=== PATIENT | male | born 2000 | race Caucasian/White ===

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

== ENCOUNTER 2019-04-10 14:43 | Emergency (ER) | payer MEDICAID, OTHER ==
[~2019-04-10] VITALS: Ht 185.4 cm; Wt 77.1 kg
--- OUTSIDE RECORDS SUMMARY | 2019-04-10 14:54 | XMS REPORT | Continuity of Care Document ---
Author Author [facility] Organization [facility] Address Unknown Phone Unavailable Care Team Providers Care Lighting Fixture Installer Name Role Phone [facility] OF Insurance Providers Payer Name Policy Number Subscriber Name Relationship Medicaid [place] [id number] Peter Salcedo 01 Self / Same As Patient Advance Directives Directive Response Recorded Date Advance Directives N 07/06/13 10:27pm Organ Donor Y 07/06/13 10:27pm Problems No Known Problems or Medical conditions. Family History History Response Recorded Date/Time Hx Family Cancer Y PATERNAL AUNT & GRANDMOTHER 02/27/09 11:40pm Hx Family Cardiac Disorders Y 02/27/09 11:40pm Hx Family Hypertension Y MATERNAL GRANDMOTHER 02/27/09 11:40pm Social History History Response Recorded Date/Time Alcohol Use Denies Use 07/06/13 10:27pm Recreational Drug Use N 07/06/13 10:27pm Allergies, Adverse Reactions, Alerts Allergen Type Severity Reaction Last Updated No Known Allergies Allergy Mild 02/27/09 NKDA Allergy Mild 04/28/09 Medications Medication Dose Units Route Sig Qty Days No Active Prescriptions or Reported Medications Azithromycin (Zithromax) 1 Tab PO DAILY 4 Response Recorded Date/Time Status not known Unknown Results No Known Relevant Diagnostic Tests, Laboratory Data and/or Discharge Summary. Encounters Encounter Location Date/Time Departed Emergency Room [facility] 07/06/13 10:20pm Discharged Inpatient [facility] 12:00am
--- OUTSIDE RECORDS SUMMARY | 2019-04-10 14:54 | XMS REPORT | Continuity of Care Document ---
Author Author [facility] Organization [facility] Address Unknown Phone Unavailable Care Team Providers Care Building Drafting Officer Name Role Phone MANUELA POE MD PP Insurance Providers Payer Name Policy Number Subscriber Name Relationship Medicaid [place] [id number] Peter Salcedo 01 Self / Same As Patient Advance Directives Directive Response Recorded Date Advance Directives N 03/30/13 3:08am Problems No Known Problems or Medical conditions. Family History History Response Recorded Date/Time Hx Family Cancer Y PATERNAL AUNT & GRANDMOTHER 02/27/09 11:40pm Social History History Response Recorded Date/Time Alcohol Use Denies Use 03/30/13 3:08am Recreational Drug Use N 03/30/13 3:08am Allergies, Adverse Reactions, Alerts Allergen Type Severity Reaction Last Updated No Known Allergies Allergy Mild 02/27/09 NKDA Allergy Mild 04/28/09 Medications Medication Dose Units Route Sig Qty Days Azithromycin (Zithromax) 1 Tab PO DAILY 4 Response Recorded Date/Time Status not known Unknown Results No Known Relevant Diagnostic Tests, Laboratory Data and/or Discharge Summary. Encounters Encounter Location Date/Time Departed Emergency Room [facility] 03/30/13 3:06am Discharged Inpatient [facility] 12:00am
[2019-04-10] MEDS ORDERED: KETOROLAC 60 MG/2 ML VIAL IM ONE (15:00)
[2019-04-10] MEDS ORDERED: CYCLOBENZAPRINE 10 MG (FLEXERIL) TAB PO SCH (15:00)
--- NOTE | 2019-04-10 15:05 | ED Back Pain ---
General Chief Complaint: Back Problems Stated Complaint: BACK INJ Nursing Triage Note: AMBULATED TO TRIAGE WITH COMPLAINTS OF MID TO LOW BACK PAIN AFTER CARRYING WOOD FOR THE NI. Nursing Sepsis Screen: No Definite Risk Source of Information: Patient Exam Limitations: No Limitations History of Present Illness Date Seen by Provider: Apr 10, 2019 Time Seen by Provider: 15:03 Initial Comments 18-year-old male who presents to the emergency room with complaints of lower back pain after lifting a big pieces of wood while working at the [employer] today. He denies loss of bowel or bladder or saddle paresthesia. He reports that he feels like he is having back spasms. Location: Lumbar Spine Timing/Duration: 1-3 Hours Pain/Injury Location: Back Associated Symptoms: muscle spasms, lower back pain Allergies and Home Medications Allergies Coded Allergies: NKANo Known Allergies (Unverified Allergy, Mild, 02/27/09) Home Medications Cyclobenzaprine HCl 10 Mg Tablet, 10 MG PO Q8H PRN for SPASMS Prescribed by: ATUL LINDA on 04/10/191650 Hydrocodone Bit/Acetaminophen 1 Tab Tab, 1 EACH PO Q4-6HR PRN for PAIN-MODERATE Prescribed by: ATUL LINDA on 04/10/191650 Prednisone 20 Mg Tab, 40 MG PO DAILY Prescribed by: ATUL LINDA on 04/10/191650 Patient Home Medication List Home Medication List Reviewed: Yes Review of Systems Constitutional: see HPI; No chills, No fever Musculoskeletal: see HPI, back pain, muscle stiffness All Other Systems Reviewed Negative Unless Noted: Yes Past Nfbvnne-Sizwsk-Sdrrii Hx Past Med/Social Hx: Reviewed Nursing Past Med/Soc Hx Patient Social History Alcohol Use: Occasionally Uses Recreational Drug Use: No Smoking Status: Current Everyday Smoker Recent Foreign Travel: No Contact w/Someone Who Travel: No Recent Infectious Disease Expo: No Recent Hopitalizations: No Seasonal Allergies Seasonal Allergies: No Past Medical History Surgeries: No Respiratory: No Cardiac: No Neurological: No Genitourinary: No Gastrointestinal: No Musculoskeletal: Yes (ANDREI MOUNTAIN SPOTTED FEVER A CHILD) Endocrine: No HEENT: No Cancer: No Psychosocial: No Integumentary: No Blood Disorders: No Family Medical History Reviewed Nursing Family Hx Physical Exam Vital Signs Vital Signs - First Documented 04/10/19 04/10/19 14:54 17:01 Temp 98.0 Pulse 118 Resp 16 B/P (MAP) 116/76 (89) Pulse Ox 96 O2 Delivery Room Air Capillary Refill : Less Than 3 Seconds Height, Weight, BMI Height: 6'1.00" Weight: 170lbs. oz. 77.866104ra; 21.09 BMI Method:Stated General Appearance: No Apparent Distress, WD/WN Neck: Full Range of Motion, Normal Inspection, Non Tender, Supple Cardiovascular: Regular Rate, Rhythm, No Edema, No Gallop, No JVD, No Murmur, Normal Peripheral Pulses Respiratory: Chest Non Tender, Lungs Clear, Normal Breath Sounds, No Accessory Muscle Use, No Respiratory Distress, Accessory Muscle Use Back: Normal Inspection, No CVA Tenderness, Muscle Spasm (lumbar), Vertebral Tenderness Extremity: No Pedal Edema Neurologic/Psychiatric: Alert, Oriented x3, Normal Mood/Affect Skin: Normal Color, Warm/Dry Progress/Results/Core Measures Results/Orders My Orders Orders - ATUL LINDA Ketorolac Injection (Toradol Injection) (04/10/19 15:00) Cyclobenzaprine Tablet (Flexeril Tablet) (04/10/19 15:00) Hydrocodone/Apap 7.5/325 Tab (Lortab 7. (04/10/19 16:15) Ct Lumbar Spine Wo (04/10/19 16:08) Medications Given in ED Vital Signs/I&O 04/10/19 04/10/19 14:54 17:01 Temp 98.0 98.0 Pulse 118 118 Resp 16 16 B/P (MAP) 116/76 (89) Pulse Ox 96 96 O2 Delivery Room Air Diagnostic Imaging Diagonstic Imaging: CT Comments NAME: UVALDO SALCEDO REC#: [id number] PT STATUS: REG ER : 2000 PHYSICIAN: ATUL LINDA ADMIT DATE: 04/10/19/ER Draft Date of Exam:04/10/19 CT LUMBAR SPINE WO PROCEDURE: CT lumbar spine without contrast. TECHNIQUE: Multiple contiguous axial images were obtained through the lumbar spine without the use of intravenous contrast. Sagittal and coronal reformations were then performed. Auto Exposure Controls were utilized during the CT exam to meet ALARA standards for radiation dose reduction. INDICATION: Low back pain after lifting a stack of heavy lumber. COMPARISON: None available. FINDINGS: No fracture or acute osseous abnormality. Vertebral body heights are maintained. Spinal alignment and intervertebral disc spaces are preserved. Incidental note is made of a somewhat triangular-shaped well corticated ossific density with sclerotic margins along the superoanterior endplate of the L5 vertebral body, likely representing a limbus vertebra, normal variant. A Schmorl's node is demonstrated along the inferior endplate of the L4 vertebral body. The SI joints are normal. The visualized lungs are clear. No aneurysmal dilatation of the visualized aorta. Abdominal organs and bowel are unremarkable. IMPRESSION: No acute fracture or subluxation involving the lumbar spine. Dictated on workstation # [id number] Dict: 04/10/19 1635 Trans: 04/10/19 1647 [facility] [id number] Interpreted by: YAZMIN TOWNSEND DO Electronically signed by: Reviewed: Reviewed by Me Departure Impression Primary Impression: Back strain Disposition: 01 HOME, SELF-CARE Condition: Stable/Unchanged Departure-Patient Inst. Decision time for Depature: 16:49 Referrals: NO,LOCAL PHYSICIAN (PCP/Family) Primary Care Physician Patient Instructions: Lumbar Muscle Strain (DC) Add. Discharge Instructions: Take medications as directed. Follow-up with her primary care provider within 1 week for recheck. You may use additional Tylenol and ibuprofen as directed by the bottle for pain relief. Do not exceed your daily limit of Tylenol of 4000 mg. You may alternate ice and heat to the sore areas. All discharge instructions reviewed with patient and/or family. Voiced understanding. Scripts Cyclobenzaprine HCl (Cyclobenzaprine HCl) 10 Mg Tablet 10 MG PO Q8H PRN for SPASMS, #15 TAB 0 Refills Prov: ATUL LINDA 04/10/19 Prednisone (Prednisone) 20 Mg Tab 40 MG PO DAILY for 5 Days, #10 TAB 0 Refills Prov: ATUL LINDA 04/10/19 Hydrocodone Bit/Acetaminophen (Hydrocodone/Acetaminophen 5/325mg Tablet) 1 Tab Tab 1 EACH PO Q4-6HR PRN for PAIN-MODERATE MDD 10 for 3 Days, #10 TAB Prov: ATUL LINDA 04/10/19 Work/School Note: Work Release Form Date Seen in the Emergency Department: Apr 10, 2019 Return to Work: Apr 12, 2019 Restrictions: No Restrictions ATUL LINDA Apr 10, 2019 15:05
[2019-04-10] MEDS ORDERED: HYDROcodone/APAP 7.5 MG/325 MG (LORTAB, LORCET PLUS) TABLET PO ONE (16:15)
--- NOTE | 2019-04-10 16:48 | Diagnostic Imaging Report ---
PROCEDURE: CT lumbar spine without contrast. TECHNIQUE: Multiple contiguous axial images were obtained through the lumbar spine without the use of intravenous contrast. Sagittal and coronal reformations were then performed. Auto Exposure Controls were utilized during the CT exam to meet ALARA standards for radiation dose reduction. INDICATION: Low back pain after lifting a stack of heavy lumber. COMPARISON: None available. FINDINGS: No fracture or acute osseous abnormality. Vertebral body heights are maintained. Spinal alignment and intervertebral disc spaces are preserved. Incidental note is made of a somewhat triangular-shaped well corticated ossific density with sclerotic margins along the superoanterior endplate of the L5 vertebral body, likely representing a limbus vertebra, normal variant. A Schmorl's node is demonstrated along the inferior endplate of the L4 vertebral body. The SI joints are normal. The visualized lungs are clear. No aneurysmal dilatation of the visualized aorta. Abdominal organs and bowel are unremarkable. IMPRESSION: No acute fracture or subluxation involving the lumbar spine. Dictated by: Dictated on workstation # [id number]
[2019-04-10] MEDS ORDERED: ACHD5005 PO (16:51)
[2019-04-10] MEDS ORDERED: CYCL10TA9 PO (16:51)
[2019-04-10] MEDS ORDERED: PRD20T PO (16:51)
[2019-04-10 17:01] VITALS: BP 116/76
== END 2019-04-10 17:01 | disposition home or self-care (01) ==
LOC: EDUNIT# 14:43 → ER 14:44
DX: S39.012A Strain of muscle, fascia and tendon of lower back, initial encounter (principal); F17.200 Nicotine dependence, unspecified, uncomplicated; Z79.52 Long term (current) use of systemic steroids; X50.0XXA Overexertion from strenuous movement or load, initial encounter; Y92.59 Other trade areas as the place of occurrence of the external cause; Y99.0 Civilian activity done for income or pay
CPT/HCPCS: 72131; 96372

== ENCOUNTER 2020-07-18 08:29 | Emergency (ER) | payer OTHER ==
[~2020-07-18] VITALS: Ht 185.4 cm; Wt 83.3 kg
[~2020-07-18 08:29] MED LIST changes: +ACHD5005 PO; +CYCL10TA9 PO; +PRD20T PO
[2020-07-18] MEDS ORDERED: LACTATED RINGERS 1,000 ML IV ONE (09:07)
[2020-07-18 09:20] LABS: BASOPHILS # (AUTO) 0.1 10^3/uL (0.0-0.1); BASOPHILS % (AUTO) 1 % (0-10); EOSINOPHILS # (AUTO) 0.1 10^3/uL (0.0-0.3); EOSINOPHILS % (AUTO) 2 % (0-10); HEMATOCRIT 40 % (40-54); HEMOGLOBIN 14.4 G/DL (13.3-17.7); LYMPHOCYTES # (AUTO) 2.7 X 10^3 (1.0-4.0); LYMPHOCYTES % (AUTO) 37 % (12-44); MEAN CORPUSCULAR HEMOGLOBIN 31 PG (25-34); MEAN CORPUSCULAR HGB CONC 36 G/DL (32-36); MEAN CORPUSCULAR VOLUME 87 FL (80-99); MEAN PLATELET VOLUME 8.8 FL (7.4-10.4); MONOCYTES # (AUTO) 0.8 X 10^3 (0.0-1.0); MONOCYTES % (AUTO) 11 % (0-12); NEUTROPHILS # (AUTO) 3.5 X 10^3 (1.8-7.8); NEUTROPHILS % (AUTO) 49 % (42-75); PLATELET COUNT 326 10^3/uL (130-400); WHITE BLOOD COUNT 7.2 10^3/uL (4.3-11.0)
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
[2020-07-18 09:33] LABS: ALANINE AMINOTRANSFERASE 33 U/L (0-55); ALBUMIN 4.3 GM/DL (3.2-4.5); ALKALINE PHOSPHATASE 55 U/L (40-136); BILIRUBIN,TOTAL 0.5 MG/DL (0.1-1.0); BUN/CREATININE RATIO 11; CALCIUM 9.2 MG/DL (8.5-10.1); CARBON DIOXIDE 23 MMOL/L (21-32); CHLORIDE 109 MMOL/L (98-107); CREATININE SERUM 0.92 MG/DL (0.60-1.30); GFR ESTIMATED > 60; GLUCOSE 87 MG/DL (70-105); MAGNESIUM 2.1 MG/DL (1.6-2.4); POTASSIUM 3.8 MMOL/L (3.6-5.0); SODIUM 139 MMOL/L (135-145); TOTAL PROTEIN 7.1 GM/DL (6.4-8.2)
--- NOTE | 2020-07-18 10:12 | NUR ---
TO CT PER CART
--- NOTE | 2020-07-18 10:23 | Diagnostic Imaging Report ---
PROCEDURE: CT head without contrast. TECHNIQUE: Multiple contiguous axial images were obtained through the brain without the use of intravenous contrast. Auto Exposure Controls were utilized during the CT exam to meet ALARA standards for radiation dose reduction. INDICATION: Seizure. Headaches. Comparison with 07/07/2013. FINDINGS: The ventricles and cortical gyral pattern are normal. There is no intracranial hemorrhage or mass effect. No extra-axial fluid collection. Basal cisterns are clear. CP angles are normal. The mastoid air cells are clear. Paranasal sinuses are clear. No calvarial lesion. IMPRESSION: Negative CT head without contrast. Dictated by: Dictated on workstation # [id number]
[2020-07-18 11:12] VITALS: BP 122/68
== END 2020-07-18 11:12 | disposition home or self-care (01) ==
LOC: EDUNIT# 08:29 → ER 08:30
DX: R56.9 Unspecified convulsions (principal)
CPT/HCPCS: 36415; 70450; 80053; 83735; 84443; 85025

== ENCOUNTER 2022-05-19 10:29 | Emergency (ER) | payer SELFPAY ==
[~2022-05-19] VITALS: Ht 185.5 cm; Wt 77.1 kg
[~2022-05-19 10:29] MED LIST changes: +CYCL10TA25 PO; -CYCL10TA9 PO
[2022-05-19 11:14] VITALS: BP 111/65
[2022-05-19] MEDS ORDERED: HYDROcodone/APAP 5 MG/325 MG (LORTAB) TAB PO ONE (11:45)
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
[2022-05-19 12:04] LABS: BASOPHILS # (AUTO) 0.1 10^3/uL (0.0-0.1); BASOPHILS % (AUTO) 1 % (0-10); EOSINOPHILS # (AUTO) 0.1 10^3/uL (0.0-0.3); EOSINOPHILS % (AUTO) 0 % (0-10); HEMATOCRIT 41 % (40-54); HEMOGLOBIN 13.7 g/dL (13.3-17.7); LYMPHOCYTES # (AUTO) 1.3 10^3/uL (1.0-4.0); LYMPHOCYTES % (AUTO) 9 % (12-44); MEAN CORPUSCULAR HEMOGLOBIN 32 pg (25-34); MEAN CORPUSCULAR HGB CONC 34 g/dL (32-36); MEAN CORPUSCULAR VOLUME 94 fL (80-99); MEAN PLATELET VOLUME 8.5 fL (9.0-12.2); MONOCYTES # (AUTO) 0.8 10^3/uL (0.0-1.0); MONOCYTES % (AUTO) 6 % (0-12); NEUTROPHILS # (AUTO) 11.6 10^3/uL (1.8-7.8); NEUTROPHILS % (AUTO) 84 % (42-75); PLATELET COUNT 324 10^3/uL (130-400)
[2022-05-19 12:17] LABS: ALBUMIN 4.7 GM/DL (3.2-4.5)
[2022-05-19 12:18] LABS: CHLORIDE 105 MMOL/L (98-107); POTASSIUM 4.1 MMOL/L (3.6-5.0); SODIUM 144 MMOL/L (135-145)
[2022-05-19 12:19] LABS: CALCIUM 9.7 MG/DL (8.5-10.1)
[2022-05-19 12:20] LABS: GLUCOSE 87 MG/DL (70-105); TOTAL PROTEIN 7.4 GM/DL (6.4-8.2)
[2022-05-19 12:21] LABS: CARBON DIOXIDE 25 MMOL/L (21-32)
[2022-05-19 12:22] LABS: BILIRUBIN,TOTAL 1.1 MG/DL (0.1-1.0)
[2022-05-19 12:23] LABS: ALKALINE PHOSPHATASE 59 U/L (40-136); CREATININE SERUM 0.82 MG/DL (0.60-1.30); GFR ESTIMATED 127
[2022-05-19 12:24] LABS: BUN/CREATININE RATIO 17
[2022-05-19 12:26] LABS: ALANINE AMINOTRANSFERASE 24 U/L (0-55)
--- NOTE | 2022-05-19 13:04 | Diagnostic Imaging Report ---
PROCEDURE: CT maxillofacial without contrast. TECHNIQUE: Multiple contiguous axial images were obtained through the facial bones without the use of intravenous contrast. Auto Exposure Controls were utilized during the CT exam to meet ALARA standards for radiation dose reduction. INDICATION: Left facial pain. FINDINGS: There is a mildly displaced, angulated, and overriding fracture within the left mandibular neck with associated surrounding edema and contusion. There is no bk dislocation of the mandibular condyle. The right temporomandibular joint is intact. There is a depressed, angulated fracture involving the lateral wall of the left maxillary sinus with associated left maxillary sinus air-fluid level, likely due to hemorrhage. This does extend superiorly toward the apex of the orbit; however, no definite orbital floor fracture is identified. The remainder of the paranasal sinuses is clear. No other definite fracture is identified. IMPRESSION: Angulated overriding fracture involving the left mandibular neck without condylar extension or dislocation. There is a depressed fracture involving the lateral wall of the left maxillary sinus with associated hemorrhage into the sinus. No definite orbital involvement is identified. Dictated by: Dictated on workstation # [id number]
[2022-05-19] MEDS ORDERED: ACHD5005 PO (13:37)
[2022-05-19] MEDS ORDERED: CEPH500T PO (13:37)
[2022-05-20] MEDS ORDERED: KETO10TA PO (03:28)
== END 2022-05-19 13:43 | disposition home or self-care (01) ==
LOC: EDUNIT# 10:29 → ER 10:31
DX: S02.92XA Unspecified fracture of facial bones, initial encounter for closed fracture (principal); X58.XXXA Exposure to other specified factors, initial encounter
CPT/HCPCS: 36415; 70486; 80053; 85025; 99282

== ENCOUNTER 2022-05-20 02:50 | Emergency (ER) | payer SELFPAY ==
[~2022-05-20 02:50] MED LIST changes: +CEPH500T PO
[2022-05-20 03:02] VITALS: BP 128/87
--- NOTE | 2022-05-20 03:26 | ED EENT ---
History of Present Illness General Chief Complaint: Dental Problems/Pain Stated Complaint: TOOTH PAIN Nursing Triage Note: pt presents with c/o left sided jaw and tooth pain. reports being seen here thursday morning and dx with a jaw fx. reports he was given prescriptions for pain medications that he has been taking every 4 hours that have not given him any releif of pain. requesting that we extract teeth on the right side that he belives were shifted when he was struck in the jaw. pt informed we do not perform dental extractions in the emergency room. pt stating he needs something more for the pain so that he can sleep. History of Present Illness Date Seen by Provider: May 20, 2022 Time Seen by Provider: 03:13 Initial Comments PT ARRIVES VIA POV FROM HOME C/O LEFT LOWER JAW PAIN PT WAS SEEN HERE YESTERDAY MORNING 05/19/22 FOR THIS PROBLEM AND WAS DX WITH MANDIBULAR FRACTURE AND GIVEN RX'S FOR HYDROCODONE AND KEFLEX AND WAS ADVISED TO FOLLOW UP WITH ENT. PT HAS NOT ATTEMPTED TO CONTACT ANYONE FOR A FOLLOW UP APPOINTMENT PT STATES HYDROCODONE IS NOT HELPING HIS PAIN--STATES HE IS TAKING ONE EVERY 4 HOURS, LAST DOSE WAS MIDNIGHT--STATES HE CAN'T SLEEP DUE TO PAIN STATES HE IS TAKING ANTIBIOTICS AND HAS NOT MISSED ANY DOSES OF THEM NO FEVER Allergies and Home Medications Allergies Coded Allergies: NKANo Known Allergies (Unverified Allergy, Mild, 02/27/09) Patient Home Medication List Home Medication List Reviewed: Yes Cephalexin (Cephalexin) 500 Mg Tablet, 500 MG PO TID Prescribed by: RAISA THOMASON on 05/19/22 1337 Cyclobenzaprine HCl (Cyclobenzaprine HCl) 10 Mg Tablet, 10 MG PO Q8H PRN for SPASMS Prescribed by: ATUL LINDA on 04/10/19 165 Hydrocodone Bit/Acetaminophen (Lortab 5 Mg Tablet) 1 Tab Tab, 1 EACH PO Q4-6HR PRN for PAIN-MODERATE Prescribed by: ATUL LINDA on 04/10/19 165 Hydrocodone/Acetaminophen (Hydrocodone-Acetamin 5-325 mg) 5 Mg-325 Mg Tablet, 1 TAB PO Q4H PRN for PAIN-MODERATE (5-7) Prescribed by: RAISA THOMASON on 05/19/22 1337 Prednisone (Prednisone) 20 Mg Tab, 40 MG PO DAILY Prescribed by: ATUL LINDA on 04/10/19 2821 Review of Systems Review of Systems Constitutional: no symptoms reported Mouth: see HPI Past Yxykpzy-Ftrkuf-Vylesq Hx Patient Social History Alcohol Use?: Yes Immunizations Up To Date Influenza Vaccine Up-to-Date: No; Not Current Seasonal Allergies Seasonal Allergies: No Past Medical History Surgeries: No Respiratory: No Cardiac: No Neurological: No Seizure Disorder Genitourinary: No Gastrointestinal: No Musculoskeletal: Yes (ANDREI MOUNTAIN SPOTTED FEVER A CHILD) Endocrine: No HEENT: No Cancer: No Psychosocial: No Integumentary: No Blood Disorders: No Physical Exam Vital Signs Vital Signs - First Documented 05/20/22 03:02 Pulse 68 Resp 18 B/P (MAP) 128/87 (101) Pulse Ox 99 O2 Delivery Room Air Height, Weight, BMI Height: 6'1.00" Weight: 170lbs. oz. [id number]; 22.00 BMI Method:Stated General Appearance: WD/WN, no apparent distress Mouth/Throat: mandibular swelling, maxillary swelling, trismus, other (MODERATE SWELING OF LEFT MANDIBLE WITH TENDERNESS. TENDERNESS TO LOWER TEETH ON LEFT, NO OPEN AREAS NOTED. SWELLING TO ADJACENT GUM TISSUE ON LEFT LOWER SIDE OF MOUTH. MILDER TENDERNESS AND SWELLING TO LEFT MAXILLA. PROMINENT AND ERYTHEMATOUS SUB LINGUAL DUCT ON LEFT. ) Neck: non-tender Progress/Results/Core Measures Results/Orders Vital Signs/I&O 05/20/22 03:02 Pulse 68 Resp 18 B/P (MAP) 128/87 (101) Pulse Ox 99 O2 Delivery Room Air Blood Pressure Mean: 101 Progress Progress Note : Progress Note GIVEN TORADOL IM FOR PAIN Departure Impression Primary Impression: CLOSED LEFT MANDIBLE ADN MAXILLA FRACTURES Disposition: 01 HOME, SELF-CARE Condition: Stable Departure-Patient Inst. Decision time for Depature: 03:26 Referrals: NO,LOCAL PHYSICIAN (PCP/Family) Primary Care Physician Patient Instructions: Facial Fracture (DC), Jaw Fracture (DC) Add. Discharge Instructions: ICE TO AREA AT 20 MINUTE INTERVALS LOTS OF FLUIDS AND SOFT FOODS THAT ARE BABY FOOD CONSISTENCY CONTINUE ANTIBIOTICS PRESCRIBED CONTINUE HYDROCODONE PRESCRIBED CALL TODAY TO SCHEDULE FOLLOW UP APPOINTMENT WITH ENT/MAXILLOFACIAL SURGEON ADVISED. All discharge instructions reviewed with patient and/or family. Voiced understanding. Scripts Ketorolac Tromethamine (Ketorolac Tromethamine) 10 Mg Tablet 10 MG PO Q6H for Pain, #15 TAB Prov: DAO APPIAH DO 05/20/22 DAO APPIAH DO May 20, 2022 03:26
[2022-05-20] MEDS ORDERED: KETO10TA PO (03:28)
[2022-05-20] MEDS ORDERED: KETOROLAC 60 MG/2 ML VIAL IM ONE (03:30)
== END 2022-05-20 03:42 | disposition home or self-care (01) ==
LOC: EDUNIT# 02:50 → ER 02:53
DX: S02.40DD Maxillary fracture, left side, subsequent encounter for fracture with routine healing (principal); S02.602D Fracture of unspecified part of body of left mandible, subsequent encounter for fracture with routine healing; Z28.310 Unvaccinated for COVID-19; X58.XXXD Exposure to other specified factors, subsequent encounter
CPT/HCPCS: 99284

== ENCOUNTER 2023-02-12 12:42 | Emergency (ER) | payer SELFPAY ==
[~2023-02-12] VITALS: Ht 185 cm; Wt 74.0 kg
[~2023-02-12 12:42] MED LIST changes: +KETO10TA PO
[2023-02-12] MEDS ORDERED: IBUP-1773 PO (13:09)
[2023-02-12] MEDS ORDERED: AMOX500C2 PO (13:09)
--- NOTE | 2023-02-12 13:10 | ED EENT ---
History of Present Illness General Chief Complaint: Ear Problems Stated Complaint: RT EAR PAIN Nursing Triage Note: pt woke up this morning with pain in right ear, muffled hearing, balance issues, and headache. Source: patient Exam Limitations: no limitations History of Present Illness Date Seen by Provider: Feb 12, 2023 Time Seen by Provider: 12:43 Initial Comments 22-year-old male with no pertinent past medical history coming in due to right ear pain. Started this morning, has some muffled hearing in that side, and has a mild headache. No fever that he knows of. No cough, congestion, vomiting, diarrhea, rash, chest pain, shortness of breath, or any other concerns. Has not taken any medicines today including no ibuprofen or Tylenol. Allergies and Home Medications Allergies Coded Allergies: Anton Known Allergies (Unverified Allergy, Mild, 02/27/09) Patient Home Medication List Home Medication List Reviewed: Yes Cephalexin (Cephalexin) 500 Mg Tablet, 500 MG PO TID Prescribed by: RAISA THOMASON on 05/19/22 1337 Cyclobenzaprine HCl (Cyclobenzaprine HCl) 10 Mg Tablet, 10 MG PO Q8H PRN for SPASMS Prescribed by: ATUL LINDA on 04/10/19 165 Hydrocodone Bit/Acetaminophen (Lortab 5 Mg Tablet) 1 Tab Tab, 1 EACH PO Q4-6HR PRN for PAIN-MODERATE Prescribed by: ATUL LINDA on 04/10/19 1651 Hydrocodone/Acetaminophen (Hydrocodone-Acetamin 5-325 mg) 5 Mg-325 Mg Tablet, 1 TAB PO Q4H PRN for PAIN-MODERATE (5-7) Prescribed by: RAISA THOMASON on 05/19/22 1337 Ketorolac Tromethamine (Ketorolac Tromethamine) 10 Mg Tablet, 10 MG PO Q6H Prescribed by: DAO APPIAH on 05/20/22 0328 Prednisone (Prednisone) 20 Mg Tab, 40 MG PO DAILY Prescribed by: ATUL LINDA on 04/10/19 1651 Review of Systems Review of Systems Constitutional: No fever Eyes: No Symptoms Reported Ears: See HPI Nose: no symptoms reported Mouth: no symptoms reported Throat: no symptoms reported Respiratory: no symptoms reported Cardiovascular: no symptoms reported Gastrointestinal: no symptoms reported Past Fvfjsnw-Mmqxms-Kwwrtm Hx Patient Social History Tobacco Use?: Yes Tobacco type used: Cigarettes Use of E-Cig and/or Vaping dev: Yes Substance use?: Yes Substance type: Marijuana Alcohol Use?: No Pt feels they are or have been: No Immunizations Up To Date Influenza Vaccine Up-to-Date: No; Not Current Seasonal Allergies Seasonal Allergies: No Past Medical History Surgeries: No Respiratory: No Cardiac: No Neurological: No Seizure Disorder Genitourinary: No Gastrointestinal: No Musculoskeletal: Yes (ANDREI MOUNTAIN SPOTTED FEVER A CHILD) Endocrine: No HEENT: No Cancer: No Psychosocial: No Integumentary: No Blood Disorders: No Physical Exam Vital Signs Vital Signs - First Documented 02/12/23 12:47 Temp 36.4 Pulse 80 Resp 18 B/P (MAP) 131/82 (98) Pulse Ox 98 O2 Delivery Room Air Height, Weight, BMI Height: 6'1.00" Weight: 170lbs. oz. 77.871441iv; 21.00 BMI Method:Stated General Appearance: WD/WN, no apparent distress Eyes: bilateral eye normal inspection Ears: right ear tenderness, right ear TM dull, right ear TM red, right ear TM bulging; left ear TM normal; bilateral ear auricle normal, bilateral ear canal normal Nose: normal inspection Mouth/Throat: normal mouth inspection, pharynx normal Neck: non-tender, full range of motion, supple, normal inspection Cardiovascular: regular rate, rhythm, no edema, no murmur Respiratory: chest non-tender, lungs clear, normal breath sounds, no respiratory distress, no accessory muscle use Gastrointestinal: normal bowel sounds, non tender, soft Neurologic/Psychiatric: no motor/sensory deficits, alert, normal mood/affect Skin: normal color, warm/dry Progress/Results/Core Measures Results/Orders Vital Signs/I&O 02/12/23 12:47 Temp 36.4 Pulse 80 Resp 18 B/P (MAP) 131/82 (98) Pulse Ox 98 O2 Delivery Room Air Blood Pressure Mean: 98 Progress Progress Note : Progress Note 22-year-old male with above history coming in due to right ear pain and muffled hearing. ABCs were intact and vitals were stable on presentation. Physical exam consistent with acute otitis media on the right. His exam is quite impressive, and I am concerned for bacterial infection despite his age. We will give IM ceftriaxone here as well as Toradol. I believe he is otherwise stable for discharge with outpatient follow-up. He was sent home with strict return precautions with the prescription of antibiotics as well. Departure Impression Primary Impression: Otitis media Qualified Codes: H66.001 - Acute suppurative otitis media without spontaneous rupture of ear drum, right ear Disposition: HOME, SELF-CARE Condition: Stable Departure-Patient Inst. Decision time for Depature: 13:07 Referrals: NO,LOCAL PHYSICIAN (PCP/Family) Primary Care Physician Patient Instructions: Ear Infection ED Add. Discharge Instructions: You will be on antibiotics for the next 10 days. You will start them tomorrow since she received the antibiotic in the ER. Prescription strength ibuprofen was also sent to the pharmacy to take for pain Scripts Amoxicillin (Amoxicillin) 500 Mg Capsule 1000 MG PO TID for 10 Days, #60 CAP 0 Refills Prov: ALINA GARCIA MD 02/12/23 Ibuprofen (Ibuprofen) 600 Mg Tablet 600 MG PO Q6H PRN for PAIN-MILD for 5 Days, #20 TAB Prov: ALINA GARCIA MD 02/12/23 Work/School Note: Work Release Form Date Seen in the Emergency Department: Feb 12, 2023 Return to Work: Feb 14, 2023 Restrictions: Return-No Fever (24hrs) ALINA GARCIA MD Feb 12, 2023 13:09
[2023-02-12] MEDS ORDERED: cefTRIAXone 500 MG/5 ML ML IM ONE (13:15)
[2023-02-12] MEDS ORDERED: KETOROLAC 30 MG/ML VIAL IM ONE (13:15)
[2023-02-12] MEDS ORDERED: LIDOCAINE 1% INJ 20 ML VIAL INJ ONE (13:15)
[2023-02-12 13:36] VITALS: BP 131/82
== END 2023-02-12 13:38 | disposition home or self-care (01) ==
LOC: EDUNIT# 12:42 → ER 12:44
DX: H66.91 Otitis media, unspecified, right ear (principal); F17.210 Nicotine dependence, cigarettes, uncomplicated; Z28.310 Unvaccinated for COVID-19
CPT/HCPCS: 99284